=== PATIENT | male | born 1985 | race African-American/Black ===

== ENCOUNTER 2019-02-27 09:35 | Inpatient (IN) | payer OTHER ==
[2019-02-27 10:45] VITALS: BMI 23.3
--- NOTE | 2019-02-27 13:17 | HP ---
CIWA Score Nausea/Vomitin Muscle Tremors: 2 Anxiety: 2 Agitation: 2 Paroxysmal Sweats: 1-Minimal Palms Moist Orientation: 0-Oriented Tacttile Disturbances: 1-Very Mild Itch/Numbness Auditory Disturbances: 1-Very Mild Visual Disturbances: 0-None Headache: 2-Mild CIWA-Ar Total Score: 13 - Admission Criteria OASAS Guidelines: Admission for Medically Managed Detox: Requires at least one of the followin. CIWA greater than 12 2. Seizures within the past 24 hours 3. Delirium tremens within the past 24 hours 4. Hallucinations within the past 24 hours 5. Acute intervention needed for co occurring medical disorder 6. Acute intervention needed for co occurring psychiatric disorder 7. Severe withdrawal that cannot be handled at a lower level of care (continued vomiting, continued diarrhea, abnormal vital signs) requiring intravenous medication and/or fluids 8. Admission ROS S - HPI Chief Complaint: i need help to stop drinking alcohol,crystal meth,marijuana Allergies/Adverse Reactions: Allergies Allergy/AdvReac Type Severity Reaction Status Date / Time amoxicillin Allergy Verified 02/27/19 10:35 midazolam [From Versed] Allergy Verified 02/27/19 14:16 Penicillins Allergy Verified 02/27/19 10:35 History of Present Illness: this 33 years old mlae with alcohol dependence,crystal meth,marijuana dependence ,seeking detox, last detox in 09/06 [facility] seen in [facility] last night refer for detox had previous admissions in detox,but keep relapsing weight loss no significant period of sobriety Exam Limitations: No Limitations - Ebola screening Have you traveled outside of the country in the last 21 days: No (N) Have you had contact with anyone from an Ebola affected area: No Do you have a fever: No - Review of Systems Constitutional: Loss of Appetite, Malaise, Night Sweats, Changes in sleep, Weakness, Unintentional Wgt. Loss EENT: reports: Nose Congestion Respiratory: reports: No Symptoms reported Cardiac: reports: No Symptoms Reported GI: reports: Nausea, Poor Appetite, Abdominal cramping : reports: No Symptoms Reported Musculoskeletal: reports: Back Pain, Muscle Pain Integumentary: reports: Dryness Neuro: reports: Headache, Tremors Endocrine: reports: No Symptoms Reported Hematology: reports: No Symptoms Reported Psychiatric: reports: No Sypmtoms Reported, Judgement Intact, Mood/Affect Appropiate Other Systems: Reviewed and Negative Patient History - Patient Medical History Hx Anemia: No Hx Asthma: No Hx Chronic Obstructive Pulmonary Disease (COPD): No Hx Cancer: No Hx Cardiac Disorders: No Hx Congestive Heart Failure: No Hx Hypertension: No Hx Hypercholesterolemia: No Hx Pacemaker: No HX Cerebrovascular Accident: No Hx Seizures: No Hx Dementia: No Hx Diabetes: No Hx Gastrointestinal Disorders: No Hx Liver Disease: No Hx Genitourinary Disorders: No Hx Sexually Transmitted Disorders: Yes (Tx for syphilis in 2016) Hx Renal Disease (ESRD): No Hx Thyroid Disease: No Hx Human Immunodeficiency Virus (HIV): No (last 03/08 negative) Hx Hepatitis C: No Hx Depression: Yes Hx Suicide Attempt: Yes (Pt tried to hit himself with a hammer 1 yr ago.) Hx Bipolar Disorder: Yes (no med) Hx Schizophrenia: No Other Medical History: no suiciidal,no suicidal - Patient Surgical History Past Surgical History: No - PPD History Previous Implant?: Yes Documented Results: Negative w/o proof Implanted On Prior [facility] Admission?: No PPD to be Administered?: Yes - Smoking Cessation Smoking history: Current every day smoker Have you smoked in the past 12 months: Yes Aproximately how many cigarettes per day: 4 Hx Chewing Tobacco Use: No Initiated information on smoking cessation: Yes 'Breaking Loose' booklet given: 02/27/19 - Substance & Tx. History Hx Alcohol Use: Yes Hx Substance Use: Yes Substance Use Type: Alcohol, Marijuana Hx Substance Use Treatment: [facility]) - Substances abused Alcohol Substance route: Oral Frequency: Daily Amount used: 1 pt. whisky, 6 beers ( 12.5 oz). Age of first use: 18 Date of last use: 02/24/19 Other Other (specify): crystal meth Substance route: Injection Frequency: 3-6 times per week Amount used: 1/ 2 gram Age of first use: 29 Date of last use: 02/24/19 Crystal meth Substance route: Smoking Frequency: 3-6 times per week Amount used: 60$ Age of first use: 30 Date of last use: 02/24/19 Marijuana/Hashish Substance route: Smoking Frequency: 1-2 times per week Amount used: 60$ Age of first use: 18 Date of last use: 02/24/19 Family Disease History - Family Disease History Family Disease History: Other: Sister (alcohol) Admission Physical Exam [facility] - Vital Signs Vital Signs: Vital Signs - 24 hr 02/27/19 10:40 Temperature 96.6 F L Pulse Rate 81 Respiratory 18 Rate Blood Pressure 109/61 - Physical General Appearance: Yes: Moderate Distress, Sweating, Anxious HEENTM: Yes: Normal ENT Inspection, MICHELLE, Pharynx Normal Respiratory: Yes: Within Normal Limits, Lungs Clear, Normal Breath Sounds Neck: Yes: Within Normal Limits, Supple, Trachea in good position Breast: Yes: Within Normal Limits Cardiology: Yes: Within Normal Limits, Regular Rhythm, Regular Rate, S1, S2 Abdominal: Yes: Within Normal Limits, Normal Bowel Sounds, Non Tender, Flat, Soft Genitourinary: Yes: Within Normal Limits Back: Yes: Muscle Spasm Musculoskeletal: Yes: Back pain, Muscle Pain Extremities: Yes: Tremors Neurological: Yes: Within Normal Limits, 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 NML intact, Alert, Motor Strength 5/5 Integumentary: Yes: Dry Lymphatic: Yes: Within Normal Limits - Diagnostic (1) Alcohol dependence with uncomplicated withdrawal Current Visit: Yes Status: Acute (2) Syncope Current Visit: Yes Status: Acute (3) Methamphetamine abuse Current Visit: Yes Status: Acute (4) Cannabis abuse Current Visit: Yes Status: Acute (5) Weight loss Current Visit: Yes Status: Acute (6) Nicotine dependence Current Visit: Yes Status: Acute (7) Bipolar disorder Current Visit: Yes Status: Acute Cleared for Admission [facility] - Detox or Rehab [facility] Level of Care: Med[facility] Man[facility] Breathalyzer - Breathalyzer Breathalyzer: 0 Urine Drug Screen - Test Device Lot number: [id number] Expiration date: 10/19/20 - Control Is test valid?: Yes - Results Drug screen NEGATIVE: No Urine drug screen results: MET-Methamphetamine, BZO-Benzodiazepines Inpatient Rehab Admission - Rehab Decision to Admit Inpatient rehab admission?: No
[2019-02-27] MEDS ORDERED: MAG HYDROX/AL HYDROX/SIMETH 30 ML UNIT-DOSE CUP PO PRN (13:33)
[2019-02-27] MEDS ORDERED: BISMUTH SUBSALICYLATE 524 MG/30 ML UD PO PRN (13:33)
[2019-02-27] MEDS ORDERED: MELATONIN 5 MG TABLETS PO PRN (13:33)
[2019-02-27] MEDS ORDERED: MAGNESIUM HYDROX 2400MG/30ML ORAL SUSPENSION 30 ML CUP PO PRN (13:33)
[2019-02-27] MEDS ORDERED: LORazepam 1 MG TABLET PO PRN (13:33)
[2019-02-27] MEDS ORDERED: ACETAMINOPHEN 325 MG TABLET (FP) PO PRN ×2 (13:33)
[2019-02-27] MEDS ORDERED: MENTHOL/PHENOL 1 EACH UD MM PRN (13:33)
[2019-02-27] MEDS ORDERED: IBUPROFEN 400 MG TABLET (FP) PO PRN (13:33)
[2019-02-27] MEDS ORDERED: METHOCARBAMOL 500 MG TABLET PO PRN (13:33)
[2019-02-27] MEDS ORDERED: MAGNESIUM CITRATE 300 ML BOTTLE PO PRN (13:33)
[2019-02-27] MEDS: LORazepam 2 MG TABLET PO SCH ×2 (17:34→22:50)
[2019-02-27 17:41] LABS: HEMATOCRIT 39.8 % (35.4-49); MCH 25.7 pg (25.7-33.7); MCHC 32.6 g/dl (32.0-35.9); MEAN CELL VOLUME 78.7 fl (80-96); MEAN PLT VOLUME 8.8 fl (7.5-11.1); PLATELET COUNT 249 K/MM3 (134-434); RBC 5.06 M/mm3 (4.00-5.60); RDW 16.3 % (11.9-15.9); WHITE BLOOD COUNT 5.3 K/mm3 (4.0-10.0)
[2019-02-27 17:42] LABS: PH,URINE 5.5 (5.0-8.0); URINE APPEARANCE TURBID; URINE BILIRUBIN NEGATIVE (NEGATIVE); URINE COLOR YELLOW; URINE GLUCOSE (UA) NEGATIVE (NEGATIVE); URINE KETONE TRACE (NEGATIVE); URINE LEUK ESTERASE NEGATIVE (NEGATIVE); URINE NITRITE NEGATIVE (NEGATIVE); URINE PROTEIN NEGATIVE (NEGATIVE); URINE UROBILINOGEN 0.2 mg/dL (0.2-1.0)
[2019-02-27 17:49] LABS: ALBUMIN 3.6 g/dl (3.4-5.0); ALK PHOS 60 U/L (45-117); ANION GAP 6 MMOL/L (8-16); BLOOD UREA NITROGEN 15 mg/dL (7-18); CALCIUM 8.7 mg/dL (8.5-10.1); CHLORIDE 100 mmol/L (98-107); CO2 28 mmol/L (21-32); CREATININE 0.9 mg/dL (0.55-1.3); GLUCOSE,RANDOM 69 mg/dL (74-106); POTASSIUM 4.4 mmol/L (3.5-5.1); SGOT/AST 68 U/L (15-37); SGPT/ALT 44 U/L (13-61); SODIUM 134 mmol/L (136-145); TOT PROT 7.3 g/dl (6.4-8.2)
[2019-02-27 18:59] LABS: SICKLE CELL SCREEN NEGATIVE (NEGATIVE)
[2019-02-27] MEDS: THIAMINE HCL 100 MG TABLET (FP) PO SCH (22:50)
[2019-02-28] MEDS: LORazepam 2 MG TABLET PO SCH ×2 (05:53→10:13)
[2019-02-28] MEDS: PRENATAL VITAMINS W/ FOLIC ACID TABLET (FP) PO SCH (10:13)
--- NOTE | 2019-02-28 10:17 | CONSULT ---
[facility] Psychiatric Consult - Data Date of interview: 02/28/19 Admission source: [facility] Identifying data: Patient is a 33 year old single male, without children, unemployed, and resides with friends in [place]. This is patient's first admission to detox at [facility]. Patient admitted to for alcohol and crystal meth dependence. Substance Abuse History: PPD History. Previous Implant?: Yes. Documented Results: Negative w/o proof. Implanted On Prior [facility] Admission?: No. PPD to be Administered?: Yes. - Smoking Cessation. Smoking history: Current every day smoker. Have you smoked in the past 12 months: Yes. Aproximately how many cigarettes per day: 4. Hx Chewing Tobacco Use: No. Initiated information on smoking cessation: Yes. 'Breaking Loose' booklet given: 02/27/19. - Substance & Tx. History. Hx Alcohol Use: Yes. Hx Substance Use: Yes. Substance Use Type : Alcohol, Marijuana. Hx Substance Use Treatment: Yes ([facility] 09/06). - Substances abused. Alcohol. Substance route: Oral. Frequency: Daily. Amount used: 1 pt. whisky, 6 beers ( 12.5 oz). Age of first use: 18. Date of last use: 02/24/19. Other. Other (specify): crystal meth. Substance route : Injection. Frequency: 3-6 times per week. Amount used: 1/ 2 gram. Age of first use: 29. Date of last use: 02/24/19. Crystal meth. Substance route: Smoking. Frequency: 3-6 times per week. Amount used: 60$. Age of first use: 30. Date of last use: 02/24/19. Marijuana/Hashish. Substance route: Smoking. Frequency: 1-2 times per week. Amount used: 60$. Age of first use: 18. Date of last use: 02/24/19 Medical History: Tx for syphilis in 2016 Psychiatric History: Patient's first psychiatric contact was as a child in an outpatient setting to address his anxiety issues. He reports h/o seeing several psychiatrist but was never consistent with treatment. Patient is unable to recall the medications he was prescribed. Patient reports h/o multiple psychiatric hospitalizations most recently last week at [facility] after exhibiting auditory and visual hallucinations secondary to usage of crystal meth. Patient reports additional psychiatric hospitalizations at [facility] and [facility] in the context of drug induced psychosis. He reports being diagnosed with Bipolar disorder at [facility]. Mr. Martinez is unable to recall the medications he was prescribed. He reports only exhibiting auditory and visual hallucinations when using crystal meth. Mr. Martinez reports one suicide attempt last year by attempting to hit himself with a hammer (was using illegal substances during his suicide attempt). He is noncompliant to outpatient treatment. Mr. Martinez denies psychotic symptoms. No manic, depressive or psychotic symptoms noted. At present he reports stable mood but is experiencing difficulty sleeping. Physical/Sexual Abuse/Trauma History: denies. Mental Status Exam - Mental Status Exam Alert and Oriented to: Time, Place, Person Cognitive Function: Good Patient Appearance: Well Groomed Mood: Withdrawn Affect: Appropriate Patient Behavior: Cooperative Speech Pattern: Appropriate Voice Loudness: Normal Thought Process: Goal Oriented Thought Disorder: Not Present Hallucinations: Denies Suicidal Ideation: Denies Homicidal Ideation: Denies Insight/Judgement: Poor Sleep: Poorly Appetite: Fair Muscle strength/Tone: Normal Gait/Station: Normal Psychiatric Findings - Problem List ([place] 1, 2,3) (1) Alcohol dependence with uncomplicated withdrawal Status: Acute (2) Cannabis abuse Status: Acute (3) Methamphetamine abuse Status: Acute (4) Nicotine dependence Status: Acute Qualifiers: Nicotine product type: cigarettes Substance use status: uncomplicated Qualified Code(s): F17.210 - Nicotine dependence, cigarettes, uncomplicated - Initial Treatment Plan Initial Treatment Plan: Psychoeducation provided. Detoxification in progress. Will order Trazodone 50mg HS. Benefits and side effects discussed. Verbal consent given.
--- NOTE | 2019-02-28 14:15 | PN ---
[facility] CIWA - CIWA Score Nausea/Vomitin-Mild Nausea/No Vomiting Muscle Tremors: 2 Anxiety: 3 Agitation: 2 Paroxysmal Sweats: 1-Minimal Palms Moist Orientation: 1-Uncertain about Date Tacttile Disturbances: 0-None Auditory Disturbances: 0-None Visual Disturbances: 0-None Headache: 0-None Present CIWA-Ar Total Score: 10 S Progress Note (SOAP) Subjective: patient is doing well with ativan detox regimen reporting feeling ok today Objective: 02/28/19 14:13 Vital Signs Temperature 96.6 F L 02/28/19 13:21 Pulse Rate 81 02/28/19 13:21 Respiratory Rate 18 02/28/19 13:21 Blood Pressure 104/63 02/28/19 13:21 O2 Sat by Pulse Oximetry (%) Laboratory Last Values WBC 5.3 K/mm3 (4.0-10.0) 02/27/19 13:40 RBC 5.06 M/mm3 (4.00-5.60) 02/27/19 13:40 Hgb 13.0 GM/dL (11.7-16.9) 02/27/19 13:40 Hct 39.8 % (35.4-49) 02/27/19 13:40 MCV 78.7 fl (80-96) L 02/27/19 13:40 MCH 25.7 pg (25.7-33.7) 02/27/19 13:40 MCHC 32.6 g/dl (32.0-35.9) 02/27/19 13:40 RDW 16.3 % (11.9-15.9) H 02/27/19 13:40 Plt Count 249 K/MM3 (134-434) 02/27/19 13:40 MPV 8.8 fl (7.5-11.1) 02/27/19 13:40 Sickle Cell Screen Negative (NEGATIVE) 02/27/19 13:40 Sodium 134 mmol/L (136-145) L 02/27/19 13:40 Potassium 4.4 mmol/L (3.5-5.1) 02/27/19 13:40 Chloride 100 mmol/L (98-107) 02/27/19 13:40 Carbon Dioxide 28 mmol/L (21-32) 02/27/19 13:40 Anion Gap 6 MMOL/L (8-16) L 02/27/19 13:40 BUN 15 mg/dL (7-18) 02/27/19 13:40 Creatinine 0.9 mg/dL (0.55-1.3) 02/27/19 13:40 Creat Clearance w eGFR 98.42 (>60) 02/27/19 13:40 Random Glucose 69 mg/dL (74-106) L 02/27/19 13:40 Calcium 8.7 mg/dL (8.5-10.1) 02/27/19 13:40 Total Bilirubin 1.0 mg/dL (0.2-1) 02/27/19 13:40 AST 68 U/L (15-37) H 02/27/19 13:40 ALT 44 U/L (13-61) 02/27/19 13:40 Alkaline Phosphatase 60 U/L (45-117) 02/27/19 13:40 Total Protein 7.3 g/dl (6.4-8.2) 02/27/19 13:40 Albumin 3.6 g/dl (3.4-5.0) 02/27/19 13:40 Urine Color Yellow 02/27/19 14:20 Urine Appearance Turbid 02/27/19 14:20 Urine pH 5.5 (5.0-8.0) 02/27/19 14:20 Ur Specific [place] 1.033 (1.010-1.035) 02/27/19 14:20 Urine Protein Negative (NEGATIVE) 02/27/19 14:20 Urine Glucose (UA) Negative (NEGATIVE) 02/27/19 14:20 Urine Ketones Trace (NEGATIVE) H 02/27/19 14:20 Urine Blood Negative (NEGATIVE) 02/27/19 14:20 Urine Nitrite Negative (NEGATIVE) 02/27/19 14:20 Urine Bilirubin Negative (NEGATIVE) 02/27/19 14:20 Urine Urobilinogen 0.2 mg/dL (0.2-1.0) 02/27/19 14:20 Ur Leukocyte Esterase Negative (NEGATIVE) 02/27/19 14:20 RPR Titer Nonreactive (NONREACTIVE) 02/27/19 13:40 HIV 1&2 Antibody Screen Negative 02/27/19 13:40 HIV P24 Antigen Negative 02/27/19 13:40 lab noted Assessment: 02/28/19 14:14 withdrawal sx Plan: continue detox
--- NOTE | 2019-02-28 16:39 | EKG ---
Test Reason : Blood Pressure : / mmHG Vent. Rate : 074 BPM Atrial Rate : 074 BPM P-R Int : 160 ms QRS Dur : 082 ms QT Int : 426 ms P-R-T Axes : 063 078 061 degrees QTc Int : 472 ms NORMAL SINUS RHYTHM NONSPECIFIC ST ABNORMALITY ABNORMAL ECG NO PREVIOUS ECGS AVAILABLE Confirmed by GALILEO LAYTON MD ([id number]) on 02/28/2019 4:39:01 PM Referred By: Confirmed By:GALILEO LAYTON MD
[2019-02-28] MEDS: LORazepam 1 MG TABLET PO SCH ×2 (18:36→22:42)
[2019-02-28] MEDS: hydrOXYzine PAMOATE 25 MG CAPSULE (FP) PO PRN (19:00)
[2019-02-28] MEDS: THIAMINE HCL 100 MG TABLET (FP) PO SCH (22:41)
[2019-02-28] MEDS: traZODone HCL 50 MG TABLET (FP) PO SCH (22:42)
[2019-03-01] MEDS: LORazepam 1 MG TABLET PO SCH ×2 (07:54→11:21)
[2019-03-01] MEDS: PRENATAL VITAMINS W/ FOLIC ACID TABLET (FP) PO SCH (11:22)
[2019-03-01] MEDS: hydrOXYzine PAMOATE 25 MG CAPSULE (FP) PO PRN (12:23)
--- NOTE | 2019-03-01 16:43 | PN ---
[facility] CIWA - CIWA Score Nausea/Vomitin-No Nausea/No Vomiting Muscle Tremors: None Anxiety: 4-Mod. Anxious/Guarded Agitation: 0-Normal Activity Paroxysmal Sweats: No Perspiration Orientation: 2-Disoriented Date<2 days Tacttile Disturbances: 1-Very Mild Itch/Numbness Auditory Disturbances: 0-None Visual Disturbances: 2-Mild Sensitivity Headache: 0-None Present CIWA-Ar Total Score: 9 S Progress Note (SOAP) Subjective: Fatigue, Anxious. Objective: PATIENT A & O X 2 (UNCERTAIN ABOUT CURRENT DAY / DATE). IN NO ACUTE DISTRESS. 03/01/19 16:42 Vital Signs Temperature 98.3 F 03/01/19 13:13 Pulse Rate 95 H 03/01/19 13:13 Respiratory Rate 18 03/01/19 13:13 Blood Pressure 127/65 03/01/19 13:13 O2 Sat by Pulse Oximetry (%) Laboratory Tests 02/27/19 02/27/19 02/27/19 13:40 13:40 13:40 WBC 5.3 RBC 5.06 Hgb 13.0 Hct 39.8 MCV 78.7 L MCH 25.7 MCHC 32.6 RDW 16.3 H Plt Count 249 MPV 8.8 Sickle Cell Screen Negative Sodium 134 L Potassium 4.4 Chloride 100 Carbon Dioxide 28 Anion Gap 6 L BUN 15 Creatinine 0.9 Creat Clearance w eGFR 98.42 Random Glucose 69 L Calcium 8.7 Total Bilirubin 1.0 AST 68 H ALT 44 Alkaline Phosphatase 60 Total Protein 7.3 Albumin 3.6 Urine Color Urine Appearance Urine pH Ur Specific [place] Urine Protein Urine Glucose (UA) Urine Ketones Urine Blood Urine Nitrite Urine Bilirubin Urine Urobilinogen Ur Leukocyte Esterase RPR Titer Nonreactive Hep C Ab Diagnostic HIV 1&2 Antibody Screen HIV P24 Antigen 02/27/19 02/27/19 02/27/19 13:40 13:40 14:20 WBC RBC Hgb Hct MCV MCH MCHC RDW Plt Count MPV Sickle Cell Screen Sodium Potassium Chloride Carbon Dioxide Anion Gap BUN Creatinine Creat Clearance w eGFR Random Glucose Calcium Total Bilirubin AST ALT Alkaline Phosphatase Total Protein Albumin Urine Color Yellow Urine Appearance Turbid Urine pH 5.5 Ur Specific [place] 1.033 Urine Protein Negative Urine Glucose (UA) Negative Urine Ketones Trace H Urine Blood Negative Urine Nitrite Negative Urine Bilirubin Negative Urine Urobilinogen 0.2 Ur Leukocyte Esterase Negative RPR Titer Hep C Ab Diagnostic <0.1 HIV 1&2 Antibody Screen Negative HIV P24 Antigen Negative LABS NOTED. Assessment: 03/01/19 16:43 WITHDRAWAL SYMPTOMS. Plan: CONTINUE DETOX. PATIENT SCHEDULED FOR D/C TOMORROW.
[2019-03-01] MEDS ORDERED: LORazepam 0.5 MG TABLET PO PRN (17:00)
[2019-03-01] MEDS: LORazepam 0.5 MG TABLET PO SCH ×2 (17:11→22:30)
[2019-03-01] MEDS: THIAMINE HCL 100 MG TABLET (FP) PO SCH (22:29)
[2019-03-01] MEDS: traZODone HCL 50 MG TABLET (FP) PO SCH (22:30)
[2019-03-02] MEDS: LORazepam 0.5 MG TABLET PO SCH ×2 (06:01→10:29)
[2019-03-02 06:17] VITALS: BP 95/60; PULSE 70; TEMP 97.9
[2019-03-02] MEDS: PRENATAL VITAMINS W/ FOLIC ACID TABLET (FP) PO SCH (10:29)
--- NOTE | 2019-03-02 16:24 | DS ---
[facility] Detox Discharge Summary Admission Date: 02/27/19 Discharge Date: 03/02/19 - History Present History: Alcohol Dependence, Cannabis Dependence Additional Comments: AT TIME OF DISCHARGE FROM DETOX UNIT, PATIENT REPORTS THAT, FOR AFTERCARE, HE WILL APPLY FOR OUTPATIENT REHAB PROGRAM ON HIS OWN AFTER DISCHARGE FROM DETOX UNIT. PATIENT WAS DISCHARGED FROM DETOX UNIT IN STABLE MEDICAL CONDITION. Pertinent Past History: History Of Depression, History Of Bipolar Disorder, History Of Syncope, History Of Methamphetmaine Abuse, Nicotine Dependence, History Of Weight Loss. - Physical Exam Results Vital Signs: Vital Signs Temperature 97.9 F 03/02/19 06:16 Pulse Rate 70 03/02/19 06:16 Respiratory Rate 16 03/02/19 06:16 Blood Pressure 95/60 03/02/19 06:16 O2 Sat by Pulse Oximetry (%) Pertinent Admission Physical Exam Findings: WITHDRAWAL SYMPTOMS. Laboratory Tests 02/27/19 02/27/19 02/27/19 13:40 13:40 13:40 WBC 5.3 RBC 5.06 Hgb 13.0 Hct 39.8 MCV 78.7 L MCH 25.7 MCHC 32.6 RDW 16.3 H Plt Count 249 MPV 8.8 Sickle Cell Screen Negative Sodium 134 L Potassium 4.4 Chloride 100 Carbon Dioxide 28 Anion Gap 6 L BUN 15 Creatinine 0.9 Creat Clearance w eGFR 98.42 Random Glucose 69 L Calcium 8.7 Total Bilirubin 1.0 AST 68 H ALT 44 Alkaline Phosphatase 60 Total Protein 7.3 Albumin 3.6 Urine Color Urine Appearance Urine pH Ur Specific [place] Urine Protein Urine Glucose (UA) Urine Ketones Urine Blood Urine Nitrite Urine Bilirubin Urine Urobilinogen Ur Leukocyte Esterase RPR Titer Nonreactive Hep C Ab Diagnostic HIV 1&2 Antibody Screen HIV P24 Antigen 02/27/19 02/27/19 02/27/19 13:40 13:40 14:20 WBC RBC Hgb Hct MCV MCH MCHC RDW Plt Count MPV Sickle Cell Screen Sodium Potassium Chloride Carbon Dioxide Anion Gap BUN Creatinine Creat Clearance w eGFR Random Glucose Calcium Total Bilirubin AST ALT Alkaline Phosphatase Total Protein Albumin Urine Color Yellow Urine Appearance Turbid Urine pH 5.5 Ur Specific [place] 1.033 Urine Protein Negative Urine Glucose (UA) Negative Urine Ketones Trace H Urine Blood Negative Urine Nitrite Negative Urine Bilirubin Negative Urine Urobilinogen 0.2 Ur Leukocyte Esterase Negative RPR Titer Hep C Ab Diagnostic <0.1 HIV 1&2 Antibody Screen Negative HIV P24 Antigen Negative LABS NOTED. - Treatment Hospital Course: Detox Protocol Followed, Detoxed Safely, Responded well, Discharged Condition Good Patient has Accepted a Rehab Referral to: PATIENT ELECTING TO PURSUE OUTPATIENT REHAB PROGRAM ON HIS OWN. - Medication Discharge Medications: Ambulatory Orders NK [No Known Home Medication] 02/27/19 - Diagnosis (1) Alcohol dependence with uncomplicated withdrawal Status: Acute (2) Bipolar disorder Status: Acute Qualifiers: Active/Remission status: remission status unspecified Qualified Code(s): F31.9 - Bipolar disorder, unspecified (3) Cannabis abuse Status: Acute (4) Methamphetamine abuse Status: Acute (5) Nicotine dependence Status: Acute Qualifiers: Nicotine product type: cigarettes Substance use status: uncomplicated Qualified Code(s): F17.210 - Nicotine dependence, cigarettes, uncomplicated (6) Syncope Status: Acute Qualifiers: Syncope type: unspecified Qualified Code(s): R55 - Syncope and collapse (7) Weight loss Status: Acute - AMA Did Patient Leave Against Medical Advice: No
== END 2019-03-02 10:40 | disposition home or self-care (01) | DRG 775 ==
LOC: YASAS 09:35 → Y3N 13:29
PROVIDERS: ADMIT Surgery; ATTEND Surgery
PROC: HZ2ZZZZ Detoxification Services for Substance Abuse Treatment (ICD-10-PCS; principal; 2019-02-27)
DX: F10.230 Alcohol dependence with withdrawal, uncomplicated (principal); F15.10 Other stimulant abuse, uncomplicated; F12.10 Cannabis abuse, uncomplicated; F17.210 Nicotine dependence, cigarettes, uncomplicated; F31.9 Bipolar disorder, unspecified; R63.4 Abnormal weight loss; Z87.438 Personal history of other diseases of male genital organs; Z88.0 Allergy status to penicillin; Z88.1 Allergy status to other antibiotic agents; Z91.5 Personal history of self-harm
CPT/HCPCS: 36415; 80053; 81003; 85027; 85660; 86593; 86803; 87389; 93005; 93010